=== PATIENT | male | born 1950 | race Caucasian/White ===

== ENCOUNTER → 2020-08-11 | Outpatient (CLI) | payer OTHER ==
[~2020-08-11] MED LIST: AEC81 PO; CLOP75TA32 PO; LEVE750T4 PO; ROSU10TA28 PO
== END | disposition home or self-care (01) ==
LOC: OIH 13:47
PROVIDERS: ATTEND Internal Medicine Cardiovascular Disease
DX: Z13.6 Encounter for screening for cardiovascular disorders (principal)
CPT/HCPCS: 75571

== ENCOUNTER 2020-08-15 08:30 | Day surgery (SDC) | payer MEDICARE ==
[2020-08-11 15:49] LABS: BASOPHILS % (AUTO) 1.4 % (0.0-5.0); EOSINOPHILS % (AUTO) 5.3 % (0.0-8.0); HEMATOCRIT 41.3 % (42-54); LYMPHOCYTES % (AUTO) 27.5 % (21.0-51.0); MEAN CORPUSCULAR HEMOGLOBIN 30.6 pg (27.0-33.0); MEAN CORPUSCULAR HGB CONC 33.9 g/dL (32.0-36.0); MEAN CORPUSCULAR VOLUME 90.4 fL (79-99); MONOCYTES % (AUTO) 8.4 % (3.0-13.0); NEUTROPHILS % (AUTO) 57.2 % (40.0-77.0); PLATELET COUNT (AUTO) 251 K/uL (130-400); RED BLOOD CELL COUNT(AUTO) 4.57 MIL/uL (4.50-6.20); RED CELL DISTRIBUTION WIDTH 11.9 % (11.0-15.5); WHITE BLOOD COUNT (AUTO) 4.9 K/uL (4.8-10.8)
[2020-08-11 15:53] LABS: APPEARANCE,URINE Clear (CLEAR); BILIRUBIN,URINE Negative (NEGATIVE); COLOR,URINE Yellow (YELLOW); GLUCOSE, URINE (UA) Negative (NEGATIVE); KETONES,URINE Negative (NEGATIVE); LEUKOCYTE ESTERASE ,URINE Negative (NEGATIVE); NITRATE,URINE Negative (NEGATIVE); OCCULT BLOOD,URINE Negative (NEGATIVE); PH,URINE 6.5 (5.0-8.0); PROTEIN,URINE Negative (NEGATIVE); UROBILINOGEN,URINE 0.2 mg/dL (0.2-1.0)
[2020-08-11 16:05] LABS: INR 1.05 (0.85-1.15); PROTHROMBIN TIME 11.4 SEC (9.6-11.6)
[2020-08-11 16:06] LABS: POTASSIUM 4.5 mmol/L (3.5-5.1)
[2020-08-11 16:07] LABS: PARTIAL THROMBOPLASTIN TIME 28.9 SEC (26.3-35.5)
[2020-08-12 14:19] VITALS: BP 134/77
[~2020-08-15] VITALS: Ht 185.4 cm; Wt 83.2 kg
[2020-08-15] VITALS (8 sets, daily range): BP systolic 98–141; BP diastolic 65–107
[~2020-08-15 08:30] MED LIST changes: +ACETAMINOPHEN 325 MG TAB PO PRN; +SODIUM CHLORIDE 0.9% 500ML 500 ML IV SCH
[2020-08-15] MEDS ORDERED: SODIUM CHLORIDE 0.9% 1000ML 1,000 ML IV ONE (09:54)
[2020-08-15] MEDS ORDERED: SODIUM CHLORIDE 0.9% 1000ML 1,000 ML IV SCH ×2 (10:30→15:45)
[2020-08-15] MEDS ORDERED: MIDAZOLAM HCL 1 MG/ML 2ML VIAL ONE ×2 (14:07→16:18)
[2020-08-15] MEDS ORDERED: HEPARIN SODIUM 1000UNIT/ML 10ML VIAL ONE (14:07)
[2020-08-15] MEDS ORDERED: IOHEXOL-350 50ML VIAL IV ONE (14:07)
[2020-08-15] MEDS ORDERED: SODIUM BICARB 50MEQ 50ML VIAL 50 ML ONE (14:07)
[2020-08-15] MEDS ORDERED: MEPERIDINE-PF 25 MG/ML SYG ONE (14:08)
[2020-08-15] MEDS ORDERED: LIDOCAINE HCL 2% 20ML ONE (14:08)
[2020-08-15] MEDS ORDERED: IOHEXOL 350 MG/ML 100ML INFUS..BTL IV ONE (14:09)
[2020-08-15] MEDS ORDERED: IOHEXOL-350 75 ML VIAL IV ONE (14:09)
[2020-08-15] MEDS ORDERED: DiphenhydrAMINE HCL 50 MG/ML VIAL ONE (14:35)
[2020-08-15] MEDS ORDERED: HYDRALAZINE HCL 20 MG/ML VIAL ONE (15:31)
[2020-08-15] MEDS ORDERED: LABETALOL 20 MG/4 ML DISP.SYRIN IV ONE (15:32)
[2020-08-15] MEDS ORDERED: PHENAZOPYRIDINE HCL 200 MG TABLET ONE (16:26)
[2020-08-15 17:04] LABS: APPEARANCE,URINE Clear (CLEAR); BILIRUBIN,URINE Negative (NEGATIVE); COLOR,URINE Yellow (YELLOW); GLUCOSE, URINE (UA) Negative (NEGATIVE); KETONES,URINE Trace mg/dL (NEGATIVE); LEUKOCYTE ESTERASE ,URINE Negative (NEGATIVE); NITRATE,URINE Negative (NEGATIVE); OCCULT BLOOD,URINE Negative (NEGATIVE); PH,URINE 7.5 (5.0-8.0); PROTEIN,URINE Negative (NEGATIVE); UROBILINOGEN,URINE 0.2 mg/dL (0.2-1.0)
== END 2020-08-15 20:04 | disposition home or self-care (01) ==
LOC: DAH 08:30 → INTOOBSV 08:30 → UNDOADMOB 08:30 → DAHIP 08:30 → EDSTATUS 15:00 → DAH 20:04 → UNDODISOB 20:04
PROVIDERS: ATTEND Internal Medicine Cardiovascular Disease
DX: I65.23 Occlusion and stenosis of bilateral carotid arteries (principal); I25.10 Atherosclerotic heart disease of native coronary artery without angina pectoris; I35.0 Nonrheumatic aortic (valve) stenosis; G40.909 Epilepsy, unspecified, not intractable, without status epilepticus; I44.7 Left bundle-branch block, unspecified; Z79.899 Other long term (current) drug therapy; Z79.82 Long term (current) use of aspirin; Z95.0 Presence of cardiac pacemaker; Z98.890 Other specified postprocedural states; Z85.46 Personal history of malignant neoplasm of prostate; Z82.49 Family history of ischemic heart disease and other diseases of the circulatory system; Z88.8 Allergy status to other drugs, medicaments and biological substances; Z79.01 Long term (current) use of anticoagulants
CPT/HCPCS: 36223; 36415; 71045; 80048; 81003 ×2; 85025; 85610; 85730; 93005; 93458; A4215; A4216; A4221; A4222; A4223 ×3; A4344; A4358; A4606; A4663; C1760; C1769 ×3; C1894; J0360; J1200; J1644 ×2; J2250 ×2; J3490 ×2; J7030; Q9965; Q9967 ×3; 36222; 99156; 99157; G0378; J2175

== ENCOUNTER 2022-04-10 09:12 | Day surgery (SDC) | payer MEDICARE ==
[2022-04-06 09:55] LABS: BASOPHILS % (AUTO) 1.4 % (0.0-5.0); EOSINOPHILS % (AUTO) 5.9 % (0.0-8.0); HEMATOCRIT 42.8 % (42-54); LYMPHOCYTES % (AUTO) 21.8 % (21.0-51.0); MEAN CORPUSCULAR HEMOGLOBIN 30.6 pg (27.0-33.0); MEAN CORPUSCULAR HGB CONC 33.6 g/dL (32.0-36.0); MEAN CORPUSCULAR VOLUME 90.9 fL (79-99); NEUTROPHILS % (AUTO) 61.7 % (40.0-77.0); PLATELET COUNT (AUTO) 204 K/uL (130-400); RED BLOOD CELL COUNT(AUTO) 4.71 MIL/uL (4.50-6.20); RED CELL DISTRIBUTION WIDTH 12.5 % (11.0-15.5); WHITE BLOOD COUNT (AUTO) 6.4 K/uL (4.8-10.8)
[2022-04-06 10:08] LABS: CREATININE 1.1 mg/dL (0.5-1.5); POTASSIUM 5.2 mmol/L (3.5-5.1)
[2022-04-06 10:10] LABS: INR 0.96 (0.85-1.15); PROTHROMBIN TIME 10.5 SEC (9.6-11.6)
[2022-04-06 10:11] LABS: PARTIAL THROMBOPLASTIN TIME 28.2 SEC (26.3-35.5)
[2022-04-09 11:52] VITALS: BP 153/86
[2022-04-10] VITALS (7 sets, daily range): BP systolic 136–152; BP diastolic 76–88
[~2022-04-10] VITALS: Ht 182.9 cm; Wt 84.9 kg
[~2022-04-10 09:12] MED LIST changes: -ACETAMINOPHEN 325 MG TAB PO PRN; +BRIV25TA PO; -CLOP75TA32 PO; -LEVE750T4 PO; -SODIUM CHLORIDE 0.9% 500ML 500 ML IV SCH
[2022-04-10] MEDS ORDERED: 0.9%NACL 1000ML 1,000 ML IV ONE (10:02)
[2022-04-10] MEDS ORDERED: LIDOCAINE HCL 1% 20 ML VIAL ONE (10:15)
[2022-04-10] MEDS ORDERED: CEFAZOLIN SODIUM 1 GM VIAL ONE (10:15)
[2022-04-10] MEDS ORDERED: MIDAZOLAM HCL 1 MG/ML 2ML VIAL ONE ×3 (10:16→11:03)
[2022-04-10] MEDS ORDERED: MEPERIDINE-PF 25 MG/ML SYG ONE (10:16)
[2022-04-10] MEDS ORDERED: BUPIVACAINE/PF 0.25% 10ML VIAL IJ ONE (10:16)
[2022-04-10] MEDS ORDERED: BUPIVACAINE/PF 0.25% 30ML VIAL IJ ONE (10:37)
[2022-04-10] MEDS ORDERED: IOHEXOL-350 50ML VIAL IV ONE (10:38)
[2022-04-10] MEDS ORDERED: DiphenhydrAMINE HCL 50 MG/ML VIAL ONE (10:46)
== END 2022-04-10 13:15 | disposition home or self-care (01) ==
LOC: DAH 09:12
PROVIDERS: ATTEND Internal Medicine Cardiovascular Disease
DX: I42.8 Other cardiomyopathies (principal); I49.5 Sick sinus syndrome; I44.7 Left bundle-branch block, unspecified; Z79.01 Long term (current) use of anticoagulants; Z79.899 Other long term (current) drug therapy; Z88.8 Allergy status to other drugs, medicaments and biological substances; Z53.8 Procedure and treatment not carried out for other reasons
CPT/HCPCS: 93005; 80048; 85025; 85610; 85730; 36415; C1769; C1894; J1200; J0690; J7030; J3490; J2250 ×3; Q9967; A4215; A4222; A4221; A4663; A4216; A4606; A4223 ×3; 99156; 99157; J2175